=== PATIENT | female | born 1970 | race Caucasian/White ===

== ENCOUNTER 2016-09-11 19:27 | Emergency (ER) | payer SELFPAY ==
[~2016-09-11] VITALS: Ht 154.9 cm; Wt 65.0 kg
[2016-09-11 19:36] VITALS: BP 117/62; PULSE 82; RESP 18; TEMP 98.1; O2SAT 100
[2016-09-11] MEDS ORDERED: SODIUM CHLOR 0.9% 1000 ML INJ 1,000 ML IV ONE (19:58)
[2016-09-11] MEDS ORDERED: ONDANSETRON HCL 4 MG/2 ML VIAL IVP ONE (20:00)
[2016-09-11] MEDS ORDERED: SODIUM CHLORIDE 0.9% FLUSH 10 ML FLUSH IVF PRN (20:00)
--- NOTE | 2016-09-11 20:11 | PD ---
HPI Chief Complaint: Dizziness Time Seen by Provider: 19:34 Travel History International Travel<30 days: No Contact w/Intl Traveler<30days: No Traveled to known affect area: No History of Present Illness HPI 60 female history of hypoglycemia, who presents here with complaints of dizziness and weakness. Patient states [place]'s been [place] the beach all day yesterday and partly today. She states that she became severely dizzy. She stated she had a headache earlier. She denies this being the worse headache of her life. She denies any photophobia, neck stiffness, and other complaints. The patient states that she was concerned she may have been hypoglycemic and ate a meal however the dizziness still persisted. She does report a little bit in nausea however denies any vomiting or diarrhea. She states that she has not urinated in several hours. There are no other complaints time my examination. PFSH Past Medical History Medical History: Denies Significant Hx Diminished Hearing: No Tetanus Vaccination: Unknown Influenza Vaccination: No ?: Not LMP: 09/03/16 : 3 Para: 3 Tubal Ligation: Yes Past Surgical History Surgical History: No Previous Surgery Section: Yes (X1) Social History Alcohol Use: No Tobacco Use: Yes (2 PPD) Substance Use: No Allergies-Medications (Allergen,Severity, Reaction): Coded Allergies: No Known Allergies (Unverified , 09/11/16) Reported Meds & Prescriptions Reported Meds & Active Scripts Active Feosol (Ferrous Sulfate) 200 Mg Tab 200 Mg PO BIDPC Macrobid (Nitrofurantoin Monohydrate Macrocrystals) 100 Mg Capsule 100 Mg PO BID Review of Systems Except as stated in HPI: all other systems reviewed are Neg General / Constitutional: Positive: Fever, Chills Eyes: No: Diploplia, Blurred Vision HENT: Positive: Headaches, Lightheadedness, No: Neck Stiffness, Neck Pain ( earlier, none now) Cardiovascular: Positive: Palpitations (perceived rapid heart rate earlier), No: Chest Pain or Discomfort, Irregular Rhythm (, none now) Respiratory: No: Cough, Shortness of Breath Gastrointestinal: Positive: Nausea, No: Vomiting, Diarrhea, Abdominal Pain Genitourinary: Positive: Decreased Urinary Output, No: Frequency, Dysuria Neurologic: Positive: Weakness, Dizziness, Headache, No: Syncope, Focal Abnormalities, Change in Mentation, Paresthesia, Sensory Disturbance Psychiatric: No: Suicidal Ideations, Disorder of Thought Physical Exam Narrative GENERAL: Well-developed well-nourished female in no acute respiratory distress. SKIN: Focused skin assessment warm/dry. HEAD: Atraumatic. Normocephalic. EYES: Pupils equal and round. No scleral icterus. No injection or drainage. ENT: No nasal bleeding or discharge. Mucous membranes pink and moist. NECK: Trachea midline. No JVD. Supple. CARDIOVASCULAR: Regular rate in the 70s and normal rhythm. No murmur appreciated. RESPIRATORY: No accessory muscle use. Clear to auscultation. Breath sounds equal bilaterally. GASTROINTESTINAL: Abdomen soft, non-tender, nondistended. No rebound or guarding. MUSCULOSKELETAL: No obvious deformities. No clubbing. No cyanosis. No edema. NEUROLOGICAL: Awake and alert. No obvious cranial nerve deficits. Motor grossly within normal limits. Normal speech. Data Data Last Documented VS Vital Signs Date Time Temp Pulse Resp B/P Pulse Ox O2 Delivery O2 Flow Rate FiO2 09/11/16 21:09 60 15 120/63 100 Room Air 09/11/16 19:36 98.1 Orders Electrocardiogram (09/11/16 19:58) Complete Blood Count With Diff (09/11/16 19:58) Comprehensive Metabolic Panel (09/11/16 19:58) Urinalysis - C+S If Indicated (09/11/16 19:58) Ct Brain W/O Iv Contrast(Rout) (09/11/16 19:58) Ecg Monitoring (09/11/16 19:58) Iv Access Insert/Monitor (09/11/16 19:58) Oximetry (09/11/16 19:58) Ondansetron Inj (Zofran Inj) (09/11/16 20:00) Sodium Chloride 0.9% Flush (Ns Flush) (09/11/16 20:00) Sodium Chlor 0.9% 1000 Ml Inj (Ns 1000 M (09/11/16 19:58) Labs Laboratory Tests Test 09/11/16 20:30 White Blood Count 12.6 TH/MM3 Red Blood Count 4.53 MIL/MM3 Hemoglobin 9.3 GM/DL Hematocrit 30.8 % Mean Corpuscular Volume 68.0 FL Mean Corpuscular Hemoglobin 20.6 PG Mean Corpuscular Hemoglobin 30.3 % Concent Red Cell Distribution Width 19.0 % Platelet Count 397 TH/MM3 Mean Platelet Volume 8.1 FL Neutrophils (%) (Auto) 90.5 % Lymphocytes (%) (Auto) 5.8 % Monocytes (%) (Auto) 3.4 % Eosinophils (%) (Auto) 0.0 % Basophils (%) (Auto) 0.3 % Neutrophils # (Auto) 11.4 TH/MM3 Lymphocytes # (Auto) 0.7 TH/MM3 Monocytes # (Auto) 0.4 TH/MM3 Eosinophils # (Auto) 0.0 TH/MM3 Basophils # (Auto) 0.0 TH/MM3 CBC Comment DIFF FINAL Differential Comment Urine Color YELLOW Urine Turbidity HAZY Urine pH 6.5 Urine Specific [place] 1.018 Urine Protein TRACE mg/dL Urine Glucose (UA) NEG mg/dL Urine Ketones 40 mg/dL Urine Occult Blood NEG Urine Nitrite NEG Urine Bilirubin NEG Urine Urobilinogen 2.0 MG/DL Urine Leukocyte Esterase TRACE Urine RBC 4 /hpf Urine WBC 7 /hpf Urine Squamous Epithelial 9 /hpf Cells Urine Bacteria FEW /hpf Urine Mucus FEW /lpf Microscopic Urinalysis Comment CULT NOT INDICATED Sodium Level 142 MEQ/L Potassium Level 3.4 MEQ/L Chloride Level 109 MEQ/L Carbon Dioxide Level 26.0 MEQ/L Anion Gap 7 MEQ/L Blood Urea Nitrogen 15 MG/DL Creatinine 0.60 MG/DL Estimat Glomerular Filtration 108 ML/MIN Rate Random Glucose 123 MG/DL Calcium Level 8.2 MG/DL Total Bilirubin 0.2 MG/DL Aspartate Amino Transf 14 U/L (AST/SGOT) Alanine Aminotransferase 16 U/L (ALT/SGPT) Alkaline Phosphatase 85 U/L Total Protein 6.6 GM/DL Albumin 3.4 GM/DL [facility] Medical Decision Making Medical Screen Exam Complete: Yes Emergency Medical Condition: Yes Interpretation(s) Last [address] 09/11/161957 Signed Impressions: Service Date/Time: Sunday, September 11, 2016 20:17 - CONCLUSION: 1. No intracranial abnormalities seen. 2. Right ethmoid sinus disease. Bart Bruno MD Differential Diagnosis Dehydration versus anemia versus heat exhaustion Narrative Course 46 year old female presents today with points of dizziness and lightheadedness. The patient states that she was out in the sun yesterday and today. She reports not drinking a lot of fluid. She's been given 2 L of IVD fluid with the first being from EMS. She is noted to be anemic with a hemoglobin of 9.3. She is also noted to have an early UTI. She be treated with Macrobid patch also be given iron 200 mg twice daily [address] scan also showed right ethmoid sinus disease. The patient has no tenderness over sinuses. This is likely chronic. She is instructed to follow up with a primary care doctor in [place] where she lives. She is also instructed to drink plenty of fluids and stay out of the sun until seen by her primary care physician. Diagnosis Primary Impression: Near syncope Additional Impressions: Anemia Cystitis right ethmoid sinus disease Additional Instructions: Drink plenty of fluids. Take iron supplementation and follow up with primary care doctor in [place]. Stay out of the sun until seen by primary care physician. Med/Other Pt SpecificInfo: Prescription(s) given Scripts Ferrous Sulfate (Feosol)200 Mg Cdn271 Mg PO BIDPC #60 TAB Ref 0 Prov:Peter Olea MD 09/11/16 Nitrofurantoin Monohydrate Macrocrystals (Macrobid)100 Mg Xteggly127 Mg PO BID #14 CAP Ref 0 Prov:Peter Olea MD 09/11/16 Disposition: 01 DISCHARGE HOME Condition: Stable Peter Olea MD Sep 11, 2016 20:11
--- NOTE | 2016-09-11 20:50 | RADRPT ---
EXAM DATE/TIME: 09/11/2016 20:17 [facility] COMPARISON: No previous studies available for comparison. INDICATIONS : Dizziness. RADIATION DOSE: 30.08 CTDIvol (mGy) MEDICAL HISTORY : None SURGICAL HISTORY : Tubal ligation. ENCOUNTER: Initial ACUITY: 1 day PAIN SCALE: 0/10 LOCATION: cranial TECHNIQUE: Multiple contiguous axial images were obtained of the head. Using automated exposure control and adj ustment of the mA and/or kV according to patient size, radiation dose was kept as low as reasonably a chievable to obtain optimal diagnostic quality images. DICOM format image data is available electro nically for review and comparison. FINDINGS: CEREBRUM: The ventricles are normal for age. No evidence of midline shift, mass lesion, hemorrhage or acute in farction. No extra-axial fluid collections are seen. POSTERIOR FOSSA: The cerebellum and brainstem are intact. The 4th ventricle is midline. The cerebellopontine angle i s unremarkable. EXTRACRANIAL: The visualized portion of the orbits is intact. There is right ethmoid sinus disease. SKULL: The calvaria is intact. No evidence of skull fracture. CONCLUSION: 1. No intracranial abnormalities seen. 2. Right ethmoid sinus disease. Bart Bruno MD on September 11, 2016 at 20:46 Board Certified Radiologist. This report was verified electronically.
[2016-09-11 21:09] VITALS: BP 120/63; PULSE 60; RESP 15; O2SAT 100
[2016-09-11 21:10] LABS: AUTOMATED NEUTROPHIL # 11.4 TH/MM3 (1.8-7.7); BASOPHIL % 0.3 % (0.0-2.0); HEMATOCRIT 30.8 % (35.0-46.0); HEMO FLAGS DIFF FINAL; LYMPH % 5.8 % (9.0-44.0); LYMPHOCYTE # 0.7 TH/MM3 (1.0-4.8); MEAN CORPUSCULAR HEMOGLOBIN 20.6 PG (27.0-34.0); MEAN CORPUSCULAR HGB CONC 30.3 % (32.0-36.0); MONO % 3.4 % (0.0-8.0); NEUT % 90.5 % (16.0-70.0); PLATELET COUNT 397 TH/MM3 (150-450); RED BLOOD COUNT 4.53 MIL/MM3 (4.00-5.30); WHITE BLOOD COUNT 12.6 TH/MM3 (4.0-11.0)
[2016-09-11 21:23] LABS: BACTERIA, URINE FEW /hpf; BLOOD, URINE NEG (NEG); GLUCOSE,URINE NEG (NEG); KETONE, URINE 40 mg/dL (NEG); MUCUS URINE FEW /lpf (OCC); NITRITE,URINE NEG (NEG); PH, URINE 6.5 (5.0-8.5); SQUAMOUS EPITHELIAL CELL URINE 9 /hpf (0-5); URINE COLOR YELLOW (YELLW/STRAW)
[2016-09-11 21:24] LABS: COMMENT (UR) CULT NOT INDICATED; CULTURE IF INDICATED CULT NOT INDICATED
[2016-09-11 21:39] LABS: ANION GAP 7 MEQ/L (5-15); AST (GOT) 14 U/L (15-37); BLOOD UREA NITROGEN 15 MG/DL (7-18); CHLORIDE 109 MEQ/L (98-107); GLOMERULAR FILTRATION RATE 108 ML/MIN (>89); POTASSIUM 3.4 MEQ/L (3.5-5.1); SODIUM (NA) 142 MEQ/L (136-145)
[2016-09-11 21:40] LABS: ALT (GPT) 16 U/L (10-53)
[2016-09-11 21:43] LABS: ALKALINE PHOSPHATASE 85 U/L (45-117); TOTAL BILIRUBIN ADULT 0.2 MG/DL (0.2-1.0)
[2016-09-11] MEDS ORDERED: FERR200T PO (21:54)
[2016-09-11] MEDS ORDERED: MACR100C2 PO (21:54)
[2016-09-11 22:50] VITALS: BP 107/62
--- NOTE | 2016-09-12 13:23 | EKG ---
Date Performed: 09/11/2016 Time Performed: 20:27:23 PTAGE: 46 years EKG: Sinus rhythm WITH SINUS ARRHYTHMIA NORMAL ECG NO PREVIOUS TRACING DOCTOR: Marci Kulkarni Interpretating Date/Time 09/12/2016 13:19:11
== END 2016-09-11 22:51 | disposition home or self-care (01) ==
LOC: NEPE 19:27
DX: R55 Syncope and collapse (principal); D64.9 Anemia, unspecified; N30.90 Cystitis, unspecified without hematuria; J32.2 Chronic ethmoidal sinusitis; R51 Headache; R11.0 Nausea; I49.9 Cardiac arrhythmia, unspecified; F17.200 Nicotine dependence, unspecified, uncomplicated
CPT/HCPCS: 70450; 80053; 81001; 85025; 93005; 96374; 99285; J2405; J7030